=== PATIENT | male | born 1985 | race African-American/Black ===

== ENCOUNTER 2017-09-19 10:22 | Emergency (ER) | payer OTHER ==
[2016-01-16 22:47] VITALS: BMI 24.8
[~2017-09-19 10:22] MED LIST: XARELTO15 MG PO
[2017-09-19 10:59] LABS: BASOPHILS 0.1 % (0-2); EOSINOPHILS 0.5 % (0-7); HEMATOCRIT 47.5 % (42.0-54.0); HEMOGLOBIN 16.4 g/dL (13.5-17.5); IMMATURE GRANULOCYTES 0.2 % (0-5); LYMPHOCYTES 17.8 % (15-50); MCH 31.3 pg (26.0-34.0); MCHC 34.5 g/dL (31.0-37.0); MCV 90.6 fL (80.0-100.0); MEAN PLATELET VOLUME 10.1 fL (7.4-10.4); MONOCYTES 7.4 % (2-11); PLATELET COUNT 167 10x3/uL (130-400); RBC 5.24 10x6/uL (4.20-6.10); RDW 13.8 % (11.5-14.5); WBC 10.4 10x3/uL (4.8-10.8)
[2017-09-19 11:18] LABS: ALBUMIN 3.7 g/dL (3.4-5.0); ALKALINE PHOSPHATASE 99 U/L (46-116); ALT (SGPT) 19 U/L (10-68); BILIRUBIN - TOTAL 0.78 mg/dL (0.2-1.3); CALC OSMOLALITY 278 mosm/kg (275-300); CALCIUM 8.8 mg/dL (8.5-10.1); CARBON DIOXIDE 32.7 mmol/L (21.0-32.0); CHLORIDE - SERUM 103 mmol/L (98-107); CREATININE - SERUM 0.9 mg/dL (0.6-1.3); GLUCOSE 91 mg/dL (74-106); POTASSIUM - SERUM 4.5 mmol/L (3.5-5.1); PROTEIN - SERUM 7.6 g/dL (6.4-8.2); SODIUM 141 mmol/L (136-145); UREA NITROGEN 7 mg/dL (7-18); eGFR NON AFRICAN AMERICAN > 90 mL/min (90-120)
[2017-09-19 11:25] LABS: CHOL - HDL RATIO 3.6 ratio (2.3-4.9); CHOLESTEROL, TOTAL 181 mg/dL (0-200); CKMB 0.5 U/L (0.0-3.6); CREATINE KINASE 126 UL (21-232); HDL CHOLESTEROL 51 mg/dL (32-96); LDL CHOLESTEROL 111 mg/dL (0-100); LDL-HDL RATIO 2.2 ratio (1.5-3.5); LIPASE 414 U/L (73-393); PRO BNP 21 pg/mL (0-125); TRIGLYCERIDE 95 mg/dL (30-200)
[2017-09-19 11:28] LABS: TROPONIN-I < 0.017 ng/mL (0.000-0.060)
[2017-09-19 11:32] LABS: APPEARANCE CLEAR (CLEAR); BILIRUBIN NEGATIVE (NEGATIVE); COLOR YELLOW (YELLOW); GLUCOSE NEGATIVE (NEGATIVE); KETONE NEGATIVE (NEGATIVE); NITRITE NEGATIVE (NEGATIVE); PROTEIN NEGATIVE (NEGATIVE); SPECIFIC GRAVITY 1.005 (1.005-1.020); UROBILINOGEN NORMAL (NORMAL)
== END 2017-09-19 14:10 | disposition home or self-care (01) ==
LOC: D.ER 10:22
PROVIDERS: Family Medicine
DX: R07.89 Other chest pain (principal); K76.9 Liver disease, unspecified; Z86.711 Personal history of pulmonary embolism; R00.1 Bradycardia, unspecified

== ENCOUNTER 2018-10-30 08:33 | Emergency (ER) | payer OTHER ==
[~2018-10-30] VITALS: Ht 180.3 cm; Wt 73.2 kg
[2018-10-30 08:36] VITALS: Ht 180.3 cm; Wt 73.2 kg
[2018-10-30] MEDS ORDERED: FLUTICASONE PRO16 GM NASAL (08:38)
[2018-10-30] MEDS ORDERED: PAXIL20 MG PO (08:38)
[2018-10-30] MEDS ORDERED: ATIVAN0.5 MG PO (08:38)
[2018-10-30 08:59] LABS: BASOPHILS 0.1 % (0-2); EOSINOPHILS 0.6 % (0-7); HEMATOCRIT 44.4 % (42.0-54.0); IMMATURE GRANULOCYTES 0.4 % (0-5); LYMPHOCYTES 19.7 % (15-50); MCH 32.1 pg (26.0-34.0); MCV 89.2 fL (80.0-100.0); MEAN PLATELET VOLUME 10.1 fL (7.4-10.4); MONOCYTES 8.1 % (2-11); NEUTROPHILS 71.1 % (40-80); PLATELET COUNT 183 10x3/uL (130-400); RBC 4.98 10x6/uL (4.20-6.10); RDW 12.6 % (11.5-14.5); WBC 10.7 10x3/uL (4.8-10.8)
[2018-10-30 09:11] LABS: ALBUMIN 3.9 g/dL (3.4-5.0); ALKALINE PHOSPHATASE 84 U/L (46-116); ALT (SGPT) 26 U/L (10-68); APPEARANCE CLEAR (CLEAR); BILIRUBIN NEGATIVE (NEGATIVE); BILIRUBIN - TOTAL 0.51 mg/dL (0.2-1.3); CALC OSMOLALITY 276 mosm/kg (275-300); CALCIUM 8.9 mg/dL (8.5-10.1); CARBON DIOXIDE 25.8 mmol/L (21.0-32.0); CHLORIDE - SERUM 104 mmol/L (98-107); COLOR YELLOW (YELLOW); GLUCOSE 102 mg/dL (74-106); GLUCOSE NEGATIVE (NEGATIVE); KETONE NEGATIVE (NEGATIVE); NITRITE NEGATIVE (NEGATIVE); POTASSIUM - SERUM 3.6 mmol/L (3.5-5.1); PROTEIN TRACE mg/dL (NEGATIVE); PROTEIN - SERUM 7.6 g/dL (6.4-8.2); SODIUM 139 mmol/L (136-145); SPECIFIC GRAVITY 1.015 (1.005-1.020); UREA NITROGEN 11 mg/dL (7-18); eGFR NON AFRICAN AMERICAN > 90 mL/min (90-120)
[2018-10-30 09:12] LABS: BACTERIA FEW /hpf (NONE SEEN); EPITHELIAL CELLS OCC /hpf (0-5); MUCUS <1+ /lpf (NONE SEEN); RED CELLS - URINE RARE /hpf (0-5); WHITE CELLS - URINE OCC /hpf (0-5)
[2018-10-30 09:14] LABS: AMYLASE - SERUM 104 U/L (25-115); LIPASE 252 U/L (73-393)
[2018-10-30 09:15] LABS: TROPONIN-I < 0.017 ng/mL (0.000-0.060)
[2018-10-30] MEDS ORDERED: BENTYL10 MG PO (10:53)
[2018-10-30 11:01] VITALS: BP 110/64
== END 2018-10-30 11:02 | disposition home or self-care (01) ==
LOC: D.ER 08:33
PROVIDERS: Family Medicine
DX: R10.10 Upper abdominal pain, unspecified (principal)

== ENCOUNTER 2019-06-04 16:24 | Emergency (ER) | payer SELFPAY ==
[~2019-06-04 16:24] MED LIST changes: +ATIVAN0.5 MG PO; +BENTYL10 MG PO; +FLUTICASONE PRO16 GM NASAL; +PAXIL20 MG PO
[2019-06-04 18:07] VITALS: Ht 180.3 cm
== END 2019-06-04 18:09 | disposition left against medical advice (07) ==
LOC: D.ER 16:24
DX: R52 Pain, unspecified (principal); R20.0 Anesthesia of skin; F41.0 Panic disorder [episodic paroxysmal anxiety]